=== PATIENT | male | born 1960 | race Caucasian/White ===

== ENCOUNTER → 2018-02-19 | Outpatient (CLI) | payer SELFPAY | LOC: YCFC.O 08:33 | PROVIDERS: ATTEND Nurse Practitioner Family | DX: Z00.00 Encounter for general adult medical examination without abnormal findings (principal) ==

== ENCOUNTER → 2018-02-19 | Outpatient (CLI) | payer OTHER | LOC: YCFC.O 08:01 | PROVIDERS: ATTEND Nurse Practitioner Family | DX: Z00.00 Encounter for general adult medical examination without abnormal findings (principal) ==

== ENCOUNTER 2018-09-10 15:45 | Emergency (ER) | payer SELFPAY ==
--- NOTE | 2018-09-10 16:05 | ED.PDOC ---
History of Present Illness - General Time Seen by Provider: 09/10/18 15:57 Source: patient, family Additional Information: 58 YEAR OLD PRESENTS WITH DIFFICULTY TO SPEAK ONSET 10 AM TODAY HE STATES HE HAS DIFFICULTY EXPRESSING THE WORDS HE IS A RIGHT HANDED PERSON HAD SOME WEAKNESS IN THE RIGHT ARM DENIES HEADACHE NO NUMBNESS WEAKNESS OF LOWER EXTREMITY FACE ATHEROSCLEROTIC RISK FACTORS INCLUDE TYPE II DM HYPERTENSION CHRONIC SMOKER STRONG FAMILY HISTORY PHYSICAL ALERT WALKED IN TO THE ED RIGHT NASO-LABIAL FOLD IS FLATTER THAN LEFT THE RIGHT HAND AIR INTERCEPT CONTROLLER IS WEAK 4/5 COMPARED TO THE LEFT LOWER EXTREMITY STRENGTH POWER TONE DTR ALL EQUAL BABINSKI NEG HEART SOUNDS NORMAL NO A.FIB ( MONITOR ) CT WITH AND WITH OUT CONTRAST DONE INTERNAL CAROTID ATHEROSCLEROSIS NO INTRA CRANIAL VASCULAR LESION PER RADIOLOGY - History of Present Illness Timing/Duration: other - ONSET 10 AM TODAY Improving Factors: nothing Worsening Factors: nothing Associated Symptoms: denies symptoms Allergies/Adverse Reactions: Allergies NO KNOWN ALLERGY Allergy (Unverified 07/30/13 14:53) Review of Systems - Review of Systems Constitutional: States: no symptoms reported EENTM: States: no symptoms reported Respiratory: States: no symptoms reported Cardiology: States: no symptoms reported Gastrointestinal/Abdominal: States: no symptoms reported Genitourinary: States: no symptoms reported Skin: States: no symptoms reported Neurological: States: see HPI Endocrine: States: no symptoms reported Physical Exam - Physical Exam General Appearance: Alert, Comfortable Eye Exam: bilateral normal Ears, Nose, Throat: hearing grossly normal, normal ENT inspection, normal pharynx Neck: non-tender, full range of motion, supple Respiratory: chest non-tender, lungs clear, normal breath sounds, no respiratory distress Cardiovascular/Chest: normal peripheral pulses, regular rate, rhythm, no edema, no gallop Gastrointestinal/Abdominal: normal bowel sounds, non tender, no organomegaly, no pulsatile mass Back Exam: normal inspection, no CVA tenderness, no vertebral tenderness Neurologic: alert, oriented x 3, aphasia, facial droop Skin Exam: normal color, warm/dry Progress - Results/Orders Results/Orders: Laboratory Tests 09/10/18 09/10/18 09/10/18 16:00 16:00 16:00 WBC 10.8 RBC 4.97 Hgb 15.7 Hct 46.1 MCV 92.6 MCH 31.5 H MCHC 34.0 RDW 14.3 Plt Count 292 MPV 7.9 Absolute Neuts (auto) 9.30 H Absolute Lymphs (auto) 0.80 L Absolute Monos (auto) 0.60 Absolute Eos (auto) 0.00 Absolute Basos (auto) 0.10 Neutrophils % 86.0 H Lymphocytes % 7.5 L Monocytes % 5.8 Eosinophils % 0.1 L Basophils % 0.6 PT 9.7 INR 0.97 PTT (SP) 23.9 Sodium 134 L Potassium 4.6 Chloride 97 L Carbon Dioxide 23 Anion Gap 18.6 H BUN 21 H Creatinine 1.37 H BUN/Creatinine Ratio 15.3 Random Glucose 326 H Serum Osmolality 283.9 Calcium 10.4 H Total Bilirubin 0.4 AST 26 ALT 13 Alkaline Phosphatase 65 Serum Total Protein 7.6 Albumin 4.2 Globulin 3.4 Albumin/Globulin Ratio 1.2 5.00 MPM HIS SPEECH IS IMPROVED BUT NOT BACK TO BASELINE WILL TRANSFER TO [facility] FOR FURTHER NEUROLOGICAL EVALUATION AND WORK UP HE IS NOT A CANDIDATE FOR MRI SECONDARY TO THE PRESENCE OF BB METAL IN THE RIGHT ORBIT DISCUSSED WITH DR TIMOTEO YO MD WHO ACCEPTED THE PATIENT - EKG/XRAY/CT EKG: Sinus, no ST T wave changes Departure - Departure Clinical Impression: Transient ischaemic attack (TIA), and cerebral infarction without residual deficits, Dysarthria, Type II diabetes mellitus, Nicotine dependence, Hypertension Time of Disposition: 17:15 Disposition: Discharge to Home or Self Care Referrals: Sharda Pickett NP [Primary Care Provider] - 1-2 Weeks Transfer to Outside Facility - Transfer Information Accepting Provider:: DR TIMOTEO YO Accepting Facility: [facility] Reason for Transfer: specialized care not available - TIA HTN TYPE II DM
--- NOTE | 2018-09-10 16:39 | CT ---
EXAM DESCRIPTION: Head w/wo Contrast CLINICAL HISTORY: speech deficits COMPARISON: None TECHNIQUE: Pre and postcontrast transaxial CT images of the head are obtained from base to vertex. This exam was performed according to our departmental dose-optimization program, which includes automated exposure control, adjustment of the mA and/or kV according to patient size and/or use of iterative reconstruction technique. FINDINGS: The midline structures are not displaced. The sulci are age appropriate. The lateral, third, and fourth ventricles are normal in size, shape, and anatomic positioning. There is no evidence of mass, mass effect, hydrocephalus, or acute intracranial hemorrhage. No abnormal extra axial fluid collections are seen. Normal ledbetter-white differentiation is seen. Moderate calcifications of the intracranial carotid arteries are seen. No abnormal enhancement is seen. Major intracranial vasculature is grossly unremarkable. The visualized bone windows show no depressed skull fracture or significant abnormality. 1.8 cm fluid attenuation mucous retention cyst in the left maxillary sinus is seen. Incidentally noted tongue attenuation foreign body medial to the right ocular globe in the orbit is seen measuring 3 mm.. IMPRESSION: 1. No acute abnormality is seen on pre and post CT of the head. 2. 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 3. Metallic foreign body in the right orbit is seen. Electronically signed by: Keaton Valera MD 09/10/2018 4:37 PM CDT
[2018-09-10] MEDS ORDERED: ASPIRIN (CHEWABLE) 81 MG TAB PO ONE (18:02)
[2018-09-10 18:25] VITALS: O2SAT 95
[2018-09-10 18:27] VITALS: TEMP 96.8
[2018-09-10 18:55] VITALS: BP 126/76
== END 2018-09-10 18:51 | disposition home or self-care (01) ==
LOC: ER 15:45
DX: G45.9 Transient cerebral ischemic attack, unspecified (principal); R47.1 Dysarthria and anarthria; E11.9 Type 2 diabetes mellitus without complications; I10 Essential (primary) hypertension; F17.200 Nicotine dependence, unspecified, uncomplicated